=== PATIENT | female | born 2005 | race Asian ===

== ENCOUNTER 2024-11-28 01:37 | Emergency (ER) | payer BC ==
[~2024-11-28] VITALS: Ht 165.1 cm; Wt 80.0 kg
[2024-11-28 01:41] VITALS: BP 101/53; PULSE 87; RESP 18; O2SAT 98
[2024-11-28] MEDS: METOCLOPRAMIDE HCL 10MG/2ML VIAL IM ONE (05:06)
== END 2024-11-28 08:30 | disposition home or self-care (01) ==
LOC: ER 01:37
DX: F10.129 Alcohol abuse with intoxication, unspecified (principal); F19.90 Other psychoactive substance use, unspecified, uncomplicated; Y90.9 Presence of alcohol in blood, level not specified
CPT/HCPCS: 99283; 96372; J2765